=== PATIENT | female | born 1995 | race Caucasian/White ===

== ENCOUNTER 2016-11-19 03:09 | Emergency (ER) | payer OTHER, BC ==
[~2016-11-19] VITALS: Ht 172.7 cm; Wt 60.7 kg
[2016-11-19 03:12] VITALS: BP 132/73
== END 2016-11-19 04:29 | disposition home or self-care (01) ==
LOC: EME 03:09
PROC: 0HQ1XZZ Repair Face Skin, External Approach (ICD-10-PCS; principal; 2016-11-19)
DX: S01.81XA Laceration without foreign body of other part of head, initial encounter (principal); Y99.0 Civilian activity done for income or pay; W18.30XA Fall on same level, unspecified, initial encounter
CPT/HCPCS: 99281; 99283